=== PATIENT | female | born 1935 ===

== ENCOUNTER → 2023-06-10 | Outpatient (CLI) | payer MEDICARE ==
[~2023-06-10] VITALS: Ht 147.3 cm; Wt 50.0 kg
[~2023-06-10] MED LIST: ALLO-45 PO; APIX2.5T PO; ATOR20TA PO; CARV12 PO; LEVO75 PO; NIFE-141 PO; PANT-31 PO
[2023-06-10 10:32] VITALS: BP 141/64; PULSE 74; RESP 17; TEMP 98.1; O2SAT 96
== END | disposition home or self-care (01) ==
LOC: SRCNTR 10:06
PROVIDERS: ATTEND Internal Medicine Pulmonary Disease
DX: J44.1 Chronic obstructive pulmonary disease with (acute) exacerbation (principal); I13.0 Hypertensive heart and chronic kidney disease with heart failure and stage 1 through stage 4 chronic kidney disease, or unspecified chronic kidney disease; I50.9 Heart failure, unspecified; N18.9 Chronic kidney disease, unspecified; I48.91 Unspecified atrial fibrillation; E03.9 Hypothyroidism, unspecified